=== PATIENT | male | born 1950 | race African-American/Black ===

== ENCOUNTER 2022-07-04 16:36 | Inpatient (IN) | payer OTHER, MEDICAID ==
[2022-07-04 17:13] LABS: Hemoglobin 12.5 g/dL (14.0-18.0); Mean Corpuscular Hemoglobin 34.1 pg (27.0-31.0); Platelet Count 95 10x3/uL (130-400); RBC Distribution Width 13.1 % (11.5-14.5); Red Blood Cell (RBC) Count 3.66 mill/uL (4.70-6.10); White Blood Cell (WBC) Count 4.1 10x3/uL (4.8-10.8)
[2022-07-04 17:30] LABS: ALT (SGPT) Less than 7 U/L (8-55); AST (SGOT) 13 U/L (5-34); Albumin 4.1 g/dL (3.4-4.8); Alkaline Phosphatase 72 U/L (40-110); Anion Gap 13 mmol/L (10-20); BUN (Urea Nitrogen) 66 mg/dL (8.4-25.7); Bilirubin, Total 0.4 mg/dL (0.2-1.2); Calc. Creatinine Clearance 0 mL/min (70-130); Carbon Dioxide 20 mmol/L (23-31); Chloride 108 mmol/L (98-107); Estimated GFR 10; Globulin 2.7 g/dL (2.4-3.5); Glucose 88 mg/dL (83-110); Protein, Total 6.8 g/dL (5.8-8.1); Sodium 135 mmol/L (136-145)
[2022-07-04 17:35] LABS: #Eosinphils 0.1 thou/uL (0.0-0.7); #Lymphocytes 1.2 thou/uL (1.20-3.40); #Monocytes 0.3 thou/uL (0.11-0.59); #Neutrophils 2.4 thou/uL (1.40-6.50); %Basophils 0.1 % (0.0-1.0); %Eosinophils 3.3 % (0.0-10.0); %Lymphocytes 30.1 % (21.0-51.0); %Monocytes 7.7 % (0.0-10.0); %Neutrophils 58.8 % (42.0-75.0); MDiff Complete? YES; Macrocytosis SLIGHT = 6-15 cells (100X) (0-5/hpf); Platelet Morphology Comment Appears Decreased
[2022-07-04 17:37] LABS: Potassium 6.3 mmol/L (3.5-5.1)
[2022-07-04] MEDS ORDERED: Albuterol 2.5 MG/0.5 ML NEB ONE (17:48)
[2022-07-04] MEDS ORDERED: Furosemide 40 MG/4 ML VIAL ONE (17:48)
[2022-07-04] MEDS ORDERED: Insulin Regular 300 UNITS/3 ML VIAL ONE (17:49)
[2022-07-04] MEDS ORDERED: CALCIUM GLUC 1 GM/NS 50 ML BAG ONE (17:49)
[2022-07-04] MEDS ORDERED: Dextrose 50% Abboject 50 ML SYRINGE ONE (17:49)
[2022-07-04 17:53] LABS: CKMB 3.1 ng/mL (0-6.6)
[2022-07-04] MEDS ORDERED: Fentanyl 100 MCG/2 ML VIAL ONE (18:11)
[2022-07-04 19:09] LABS: SARS-CoV-2 NAA Rapid Test Not Detected (NotDetected)
[2022-07-04] MEDS ORDERED: Acetaminophen 325 MG TAB PO PRN (20:03)
[2022-07-04] MEDS ORDERED: Ondansetron PF 4 MG/2 ML Vial IVP PRN (20:03)
[2022-07-04] MEDS ORDERED: HumaLOG 300 UNITS/3 ML VIAL SC PRN ×2 (20:18)
[2022-07-04] MEDS ORDERED: Dextrose 5% in Water 1,000 ML IV PRN (20:18)
[2022-07-04] MEDS ORDERED: Dextrose 50% Abboject 50 ML SYRINGE SLOW IVP PRN (20:18)
[2022-07-04] MEDS: Atorvastatin Calcium 40 MG TAB PO SCH (20:58)
[2022-07-04 21:23] LABS: Troponin I 0.047 ng/mL (< 0.028)
[2022-07-04] MEDS: Nitroglycerin 0.4 MG TAB (25 Tab Bottle) SL PRN (22:26)
[2022-07-04 22:59] LABS: Calcium 9.7 mg/dL (7.8-10.44); Chloride 105 mmol/L (98-107); Potassium 5.8 mmol/L (3.5-5.1); Sodium 135 mmol/L (136-145)
[2022-07-04 23:00] LABS: Glucose 125 mg/dL (83-110)
[2022-07-04] MEDS ORDERED: Morphine 4 MG/ML VIAL SLOW IVP SCH (23:00)
[2022-07-04 23:01] LABS: Anion Gap 15 mmol/L (10-20); Carbon Dioxide 21 mmol/L (23-31)
[2022-07-04 23:03] LABS: Calc. Creatinine Clearance 10 mL/min (70-130); Estimated GFR 10
[2022-07-04 23:04] LABS: BUN (Urea Nitrogen) 68 mg/dL (8.4-25.7)
[2022-07-04 23:29] LABS: Magnesium 2.2 mg/dL (1.6-2.6)
[2022-07-04] MEDS ORDERED: Furosemide 40 MG/4 ML VIAL SLOW IVP SCH (23:45)
[2022-07-04] MEDS ORDERED: LOKELMA 10 GM PACKET PO SCH (23:45)
[2022-07-05 01:12] LABS: Troponin I 0.038 ng/mL (< 0.028)
[2022-07-05] MEDS ORDERED: Sodium Bicarbonate Tab 325 MG TAB PO SCH (03:15)
[2022-07-05] MEDS ORDERED: Ipratropium/Albuterol 3 ML NEB EZPAP PRN (03:43)
[2022-07-05 05:13] LABS: #Eosinphils 0.1 thou/uL (0.0-0.7); #Lymphocytes 1.2 thou/uL (1.20-3.40); #Monocytes 0.3 thou/uL (0.11-0.59); %Basophils 0.5 % (0.0-1.0); %Eosinophils 1.5 % (0.0-10.0); %Lymphocytes 26.8 % (21.0-51.0); %Monocytes 6.7 % (0.0-10.0); %Neutrophils 64.6 % (42.0-75.0); Hemoglobin 12.2 g/dL (14.0-18.0); Mean Corpuscular HGB CONC 32.1 g/dL (32.0-36.0); Mean Corpuscular Hemoglobin 34.4 pg (27.0-31.0); Platelet Count 121 10x3/uL (130-400); RBC Distribution Width 13.3 % (11.5-14.5); Red Blood Cell (RBC) Count 3.53 mill/uL (4.70-6.10); White Blood Cell (WBC) Count 4.7 10x3/uL (4.8-10.8)
[2022-07-05 06:30] LABS: Chloride 103 mmol/L (98-107); Potassium 5.3 mmol/L (3.5-5.1); Sodium 134 mmol/L (136-145)
[2022-07-05 06:31] LABS: Calcium 9.4 mg/dL (7.8-10.44); Glucose 100 mg/dL (83-110)
[2022-07-05 06:32] LABS: Triglycerides 83 mg/dL (Less than 150)
[2022-07-05 06:33] LABS: Anion Gap 14 mmol/L (10-20); Carbon Dioxide 22 mmol/L (23-31)
[2022-07-05 06:35] LABS: BUN (Urea Nitrogen) 68 mg/dL (8.4-25.7); Calc. Creatinine Clearance 9 mL/min (70-130); Estimated GFR 9
[2022-07-05 06:37] LABS: Cardiac Risk 3.5 (Less than 4.5); Cholesterol 87 mg/dl (< 200 Desired); HDL Cholesterol 25 mg/dL (>60 Neg Risk); LDL Cholesterol, Calculated 45 mg/dL; Magnesium 2.1 mg/dL (1.6-2.6)
[2022-07-05] MEDS: Aspirin 81 mg Enteric Coated Tablet PO SCH (08:57)
[2022-07-05] MEDS: Sodium Bicarbonate Tab 325 MG TAB PO SCH ×3 (08:57→20:52)
[2022-07-05] MEDS ORDERED: FLU VACC QS2022-23(65YR UP)/PF 240 MCG/0.7 ML SYRINGE IM ONE (09:00)
[2022-07-05] MEDS ORDERED: Famotidine 20 MG TAB PO SCH (09:30)
[2022-07-05] MEDS ORDERED: Thiamine 100 MG TAB PO SCH (09:30)
[2022-07-05 17:20] LABS: Anion Gap 13 mmol/L (10-20); BUN (Urea Nitrogen) 68 mg/dL (8.4-25.7); Calc. Creatinine Clearance 9 mL/min (70-130); Calcium 9.3 mg/dL (7.8-10.44); Carbon Dioxide 27 mmol/L (23-31); Chloride 101 mmol/L (98-107); Estimated GFR 9; Glucose 115 mg/dL (83-110); Potassium 5.3 mmol/L (3.5-5.1); Sodium 136 mmol/L (136-145)
[2022-07-05] MEDS ORDERED: LOKELMA 10 GM PACKET PO SCH (18:00)
[2022-07-05] MEDS: Folic Acid/Vit B Comp W-C PO SCH (20:52)
[2022-07-05] MEDS: Cyanocobalamin (Vitamin B-12) 1,000 MCG TAB PO SCH (20:52)
[2022-07-05] MEDS: Famotidine 20 MG TAB PO SCH (20:52)
[2022-07-05] MEDS: Atorvastatin Calcium 40 MG TAB PO SCH (20:52)
[2022-07-05] MEDS: Heparin 5,000 UNITS/ML VIAL SC SCH (20:54)
[2022-07-06 03:24] LABS: #Eosinphils 0.1 thou/uL (0.0-0.7); #Lymphocytes 0.9 thou/uL (1.20-3.40); #Monocytes 0.4 thou/uL (0.11-0.59); #Neutrophils 3.6 thou/uL (1.40-6.50); %Basophils 0.2 % (0.0-1.0); %Eosinophils 2.4 % (0.0-10.0); %Lymphocytes 17.7 % (21.0-51.0); %Monocytes 7.5 % (0.0-10.0); %Neutrophils 72.2 % (42.0-75.0); Hemoglobin 12.3 g/dL (14.0-18.0); Mean Corpuscular Hemoglobin 34.2 pg (27.0-31.0); Platelet Count 97 10x3/uL (130-400); RBC Distribution Width 13.2 % (11.5-14.5); Red Blood Cell (RBC) Count 3.61 mill/uL (4.70-6.10)
[2022-07-06 03:43] LABS: Anion Gap 16 mmol/L (10-20); BUN (Urea Nitrogen) 69 mg/dL (8.4-25.7); Calc. Creatinine Clearance 9 mL/min (70-130); Calcium 9.3 mg/dL (7.8-10.44); Carbon Dioxide 25 mmol/L (23-31); Chloride 101 mmol/L (98-107); Estimated GFR 9; Glucose 80 mg/dL (83-110); Potassium 4.9 mmol/L (3.5-5.1); Sodium 137 mmol/L (136-145)
[2022-07-06 05:57] LABS: Magnesium 2.1 mg/dL (1.6-2.6)
[2022-07-06] MEDS: Famotidine 20 MG TAB PO SCH ×2 (08:08→20:12)
[2022-07-06] MEDS: Aspirin 81 mg Enteric Coated Tablet PO SCH (08:08)
[2022-07-06] MEDS: Heparin 5,000 UNITS/ML VIAL SC SCH (08:09)
[2022-07-06] MEDS: Sodium Bicarbonate Tab 325 MG TAB PO SCH ×2 (08:09→20:12)
[2022-07-06] MEDS: Thiamine 100 MG TAB PO SCH (08:09)
[2022-07-06] MEDS ORDERED: Torsemide 20 MG TAB PO SCH (16:30)
[2022-07-06] MEDS: Carvedilol 6.25 MG TAB PO SCH (16:55)
[2022-07-06] MEDS: Folic Acid/Vit B Comp W-C PO SCH (20:11)
[2022-07-06] MEDS: Cyanocobalamin (Vitamin B-12) 1,000 MCG TAB PO SCH (20:12)
[2022-07-06] MEDS: Atorvastatin Calcium 40 MG TAB PO SCH (20:12)
[2022-07-07 04:38] LABS: Mean Corpuscular HGB CONC 31.5 g/dL (32.0-36.0); Mean Corpuscular Hemoglobin 34.5 pg (27.0-31.0); Mean Platelet Volume 9.1 fL (7.4-10.4); Platelet Count 99 10x3/uL (130-400); RBC Distribution Width 13.2 % (11.5-14.5); Red Blood Cell (RBC) Count 3.49 mill/uL (4.70-6.10); White Blood Cell (WBC) Count 4.7 10x3/uL (4.8-10.8)
[2022-07-07 04:58] LABS: Anion Gap 14 mmol/L (10-20); BUN (Urea Nitrogen) 63 mg/dL (8.4-25.7); Calc. Creatinine Clearance 10 mL/min (70-130); Calcium 9.4 mg/dL (7.8-10.44); Carbon Dioxide 31 mmol/L (23-31); Chloride 98 mmol/L (98-107); Estimated GFR 10; Glucose 76 mg/dL (83-110); Potassium 4.6 mmol/L (3.5-5.1); Sodium 138 mmol/L (136-145)
[2022-07-07 05:31] LABS: #Eosinphils 0.1 thou/uL (0.0-0.7); #Lymphocytes 0.7 thou/uL (1.20-3.40); #Monocytes 0.3 thou/uL (0.11-0.59); #Neutrophils 3.5 thou/uL (1.40-6.50); %Basophils 0.4 % (0.0-1.0); %Eosinophils 2.6 % (0.0-10.0); %Lymphocytes 15.5 % (21.0-51.0); %Monocytes 7.3 % (0.0-10.0); %Neutrophils 74.2 % (42.0-75.0); MDiff Complete? YES
[2022-07-07 05:32] LABS: Macrocytosis SLIGHT = 6-15 cells (100X) (0-5/hpf); Platelet Morphology Comment Appears Decreased
[2022-07-07 06:47] LABS: Magnesium 2.1 mg/dL (1.6-2.6)
[2022-07-07] MEDS: Dextrose 10% in Water 1,000 ML IV SCH (06:48)
[2022-07-07] MEDS: Famotidine 20 MG TAB PO SCH (09:46)
[2022-07-07] MEDS: Carvedilol 6.25 MG TAB PO SCH ×2 (09:46→18:19)
[2022-07-07] MEDS: Torsemide 20 MG TAB PO SCH (09:46)
[2022-07-07] MEDS: Thiamine 100 MG TAB PO SCH (09:46)
[2022-07-07] MEDS: Aspirin 81 mg Enteric Coated Tablet PO SCH (09:50)
[2022-07-07] MEDS ORDERED: Dextrose 50% Abboject 50 ML SYRINGE ONE (11:14)
[2022-07-07] MEDS ORDERED: EPINEPHrine 1 MG/ML AMP ONE (12:59)
[2022-07-07] MEDS ORDERED: Bupivacaine PF 0.5% 30 ML VIAL ONE (12:59)
[2022-07-07] MEDS ORDERED: Heparin 5,000 UNITS/ML VIAL ONE (13:58)
[2022-07-07] MEDS ORDERED: Protamine Sulfate 50 MG/5 ML VIAL ONE (13:58)
[2022-07-07] MEDS ORDERED: Lidocaine 2% PF 5 ML VIAL ONE (13:58)
[2022-07-07] MEDS ORDERED: Bupivacaine HCl 0.5%/Epinephrine 1:200,000/PF 30 ml Vial ONE (13:58)
[2022-07-07] MEDS ORDERED: PHENYLEPHRINE-NS 100 MCG/ML 10 ML SYRINGE ONE (14:07)
[2022-07-07] MEDS ORDERED: CEFAZOLIN 2 GM VIAL ONE (14:08)
[2022-07-07] MEDS ORDERED: Sodium Chloride 0.9% 100 ML ONE (14:08)
[2022-07-07] MEDS ORDERED: ePHEDrine 50 MG/ML VIAL ONE (14:27)
[2022-07-07] MEDS: Folic Acid/Vit B Comp W-C PO SCH (21:58)
[2022-07-07] MEDS: Sodium Bicarbonate Tab 325 MG TAB PO SCH (21:59)
[2022-07-07] MEDS: Atorvastatin Calcium 40 MG TAB PO SCH (21:59)
[2022-07-07] MEDS: Cyanocobalamin (Vitamin B-12) 1,000 MCG TAB PO SCH (21:59)
[2022-07-08] MEDS: Dextrose 10% in Water 1,000 ML IV SCH (04:00)
[2022-07-08 04:58] LABS: Albumin 3.8 g/dL (3.4-4.8); Anion Gap 17 mmol/L (10-20); BUN (Urea Nitrogen) 66 mg/dL (8.4-25.7); BUN/Creatinine Ratio 11.64; Calc. Creatinine Clearance 10 mL/min (70-130); Calcium 9.3 mg/dL (7.8-10.44); Carbon Dioxide 22 mmol/L (23-31); Chloride 99 mmol/L (98-107); Estimated GFR 10; Glucose 65 mg/dL (83-110); Phosphorus 5.1 mg/dL (2.3-4.7); Potassium 4.6 mmol/L (3.5-5.1); Sodium 133 mmol/L (136-145)
[2022-07-08] MEDS: Carvedilol 6.25 MG TAB PO SCH ×2 (09:46→18:02)
[2022-07-08] MEDS: Aspirin 81 mg Enteric Coated Tablet PO SCH (09:46)
[2022-07-08] MEDS: Torsemide 20 MG TAB PO SCH (09:46)
[2022-07-08] MEDS: Sodium Bicarbonate Tab 325 MG TAB PO SCH ×2 (09:46→19:23)
[2022-07-08] MEDS: Famotidine 20 MG TAB PO SCH (09:46)
[2022-07-08] MEDS: Thiamine 100 MG TAB PO SCH (09:48)
[2022-07-08] MEDS ORDERED: Torsemide 20 MG TAB PO SCH (16:15)
[2022-07-08] MEDS: Cyanocobalamin (Vitamin B-12) 1,000 MCG TAB PO SCH (19:23)
[2022-07-08] MEDS: Folic Acid/Vit B Comp W-C PO SCH (19:23)
[2022-07-08] MEDS: Atorvastatin Calcium 40 MG TAB PO SCH (19:24)
[2022-07-08] MEDS: Nitroglycerin 0.4 MG TAB (25 Tab Bottle) SL PRN ×2 (19:27→19:50)
[2022-07-08] MEDS ORDERED: Mag-Al 1200 mg/1200 mg/30 ML UDCUP PO SCH (20:15)
[2022-07-09 04:46] LABS: #Eosinphils 0.3 thou/uL (0.0-0.7); #Lymphocytes 1.2 thou/uL (1.20-3.40); #Monocytes 0.3 thou/uL (0.11-0.59); %Basophils 0.4 % (0.0-1.0); %Eosinophils 5.3 % (0.0-10.0); %Lymphocytes 25.5 % (21.0-51.0); %Monocytes 6.8 % (0.0-10.0); %Neutrophils 62.1 % (42.0-75.0); Hemoglobin 12.2 g/dL (14.0-18.0); Mean Corpuscular HGB CONC 32.2 g/dL (32.0-36.0); Mean Corpuscular Hemoglobin 34.5 pg (27.0-31.0); Mean Platelet Volume 8.8 fL (7.4-10.4); Platelet Count 98 10x3/uL (130-400); RBC Distribution Width 13.2 % (11.5-14.5); Red Blood Cell (RBC) Count 3.53 mill/uL (4.70-6.10); White Blood Cell (WBC) Count 4.9 10x3/uL (4.8-10.8)
[2022-07-09 05:14] LABS: Anion Gap 14 mmol/L (10-20); BUN (Urea Nitrogen) 68 mg/dL (8.4-25.7); Calc. Creatinine Clearance 11 mL/min (70-130); Calcium 9.4 mg/dL (7.8-10.44); Carbon Dioxide 32 mmol/L (23-31); Chloride 93 mmol/L (98-107); Estimated GFR 11; Glucose 81 mg/dL (83-110); Magnesium 1.7 mg/dL (1.6-2.6); Phosphorus 3.6 mg/dL (2.3-4.7); Sodium 135 mmol/L (136-145)
[2022-07-09] MEDS ORDERED: Magnesium 2 GM/50 ML(in water) 2 GM in Premix Bag 1 BAG IVPB SCH (07:00)
[2022-07-09] MEDS ORDERED: Torsemide 20 MG TAB PO SCH (09:00)
[2022-07-09] MEDS: Thiamine 100 MG TAB PO SCH (10:19)
[2022-07-09] MEDS: Famotidine 20 MG TAB PO SCH (10:20)
[2022-07-09] MEDS: Carvedilol 6.25 MG TAB PO SCH (10:20)
[2022-07-09] MEDS: Aspirin 81 mg Enteric Coated Tablet PO SCH (10:20)
[2022-07-09] MEDS: Sodium Bicarbonate Tab 325 MG TAB PO SCH (10:20)
[2022-07-09 11:41] VITALS: BMI 20.7
[2022-07-09 12:18] VITALS: BP 129/69; TEMP 98.6
== END 2022-07-09 14:45 | disposition home or self-care (01) | DRG 673 ==
LOC: ERS 16:36 → IMCU/EMU 18:38 → 2NO 07-06 22:09
PROVIDERS: ADMIT Family Medicine; ATTEND Hospitalist
PROC: 031C0ZF Bypass Left Radial Artery to Lower Arm Vein, Open Approach (ICD-10-PCS; principal; 2022-07-07)
DX: I12.0 Hypertensive chronic kidney disease with stage 5 chronic kidney disease or end stage renal disease (principal); N18.6 End stage renal disease; N17.9 Acute kidney failure, unspecified; I42.8 Other cardiomyopathies; E87.20 Acidosis, unspecified; D61.818 Other pancytopenia; I50.42 Chronic combined systolic (congestive) and diastolic (congestive) heart failure; E87.1 Hypo-osmolality and hyponatremia; R07.89 Other chest pain; Z20.822 Contact with and (suspected) exposure to COVID-19; E87.5 Hyperkalemia; R00.1 Bradycardia, unspecified; D69.6 Thrombocytopenia, unspecified; E11.22 Type 2 diabetes mellitus with diabetic chronic kidney disease; J44.9 Chronic obstructive pulmonary disease, unspecified; E78.5 Hyperlipidemia, unspecified; F17.210 Nicotine dependence, cigarettes, uncomplicated; D63.1 Anemia in chronic kidney disease; M54.9 Dorsalgia, unspecified; R33.9 Retention of urine, unspecified; Z79.82 Long term (current) use of aspirin; Z79.899 Other long term (current) drug therapy; Z90.49 Acquired absence of other specified parts of digestive tract; Z71.6 Tobacco abuse counseling
CPT/HCPCS: 36415; 36416; 71045; 71046; 76770; 80048; 80053; 80061; 80069; 82553; 83036; 83735; 83880; 84100; 84443; 84484; 85025; 93005; 93010; 93306; 93970; 94760; 96365; 96375; C1776; J0171; J0611; J1644; J1815; J1940; J2001; J2270; J2720; J3010; J3475; J3490; J7611; J7999; S0020; U0002